=== PATIENT | male | born 1975 | race African-American/Black ===

== ENCOUNTER 2020-01-14 23:58 | Emergency (ER) | payer MEDICAID ==
[~2020-01-14] VITALS: Ht 172.7 cm; Wt 109.0 kg
[2020-01-15] MEDS ORDERED: IBUPROFEN 600MG TABLET PO STA (01:06)
[2020-01-15] MEDS ORDERED: KETOROLAC 60MG/2ML VIAL IM STA (01:11)
[2020-01-15 03:04] VITALS: BP 115/63
== END 2020-01-15 03:10 | disposition home or self-care (01) ==
LOC: ER 23:58
DX: S80.01XA Contusion of right knee, initial encounter (principal); V49.49XA Driver injured in collision with other motor vehicles in traffic accident, initial encounter; Y93.89 Activity, other specified; Y92.89 Other specified places as the place of occurrence of the external cause; Y99.8 Other external cause status
CPT/HCPCS: 73562; 96372; 99283; J1885